=== PATIENT | male | born 1940 | race African-American/Black ===

== ENCOUNTER 2022-06-29 09:40 | Inpatient (IN) | payer OTHER ==
[~2022-06-29] VITALS: Ht 188 cm; Wt 108.9 kg
[2022-06-29 10:41] LABS: BASOPHILS % 1.1 % (0.0-2.0); HEMATOCRIT. 21.2 % (42.0-52.0); LYMPHOCYTES % 39.4 % (20.0-50.0); MEAN CORPUSCULAR HEMOGLOBIN 35.1 pg (28.0-32.0); MEAN CORPUSCULAR VOLUME 112.4 fL (80.0-94.0); MEAN PLATELET VOLUME 11.3 fl (7.4-10.4); MONOCYTES % 8.1 % (2.0-8.0); NEUTROPHILS % 48.4 % (40.0-76.0); PLATELET 187 x1000/uL (130-400); RED BLOOD CELL COUNT 1.88 mill/uL (4.7-6.1); RED CELL DISTRIBUTION WIDTH 29.5 % (11.6-14.6)
[2022-06-29 10:46] LABS: CHLORIDE 108 mEq/L (98-107)
[2022-06-29 11:01] LABS: HEMOGLOBIN. 6.6 g/dL (14.0-18.0)
[2022-06-29 11:19] LABS: PLATELET ESTIMATE NORMAL
[2022-06-29] MEDS ORDERED: PANTOPRAZOLE SODIUM 40 MG/VIAL IV NR (12:45)
[2022-06-29 14:56] LABS: TOTAL IRON BINDING CAPACITY 405 ug/dL (250-450)
[2022-06-29 15:07] LABS: VITAMIN B12 SERUM 1054 pg/mL (211-911)
[2022-06-29 16:08] LABS: CLARITY URINE CLEAR (CLEAR); COLOR URINE YELLOW (YELLOW); KETONES URINE NEGATIVE (NEGATIVE); LEUKOCYTE ESTERASE URINE NEGATIVE (NEGATIVE); NITRITE URINE NEGATIVE (NEGATIVE); OCCULT BLOOD URINE NEGATIVE (NEGATIVE); PROTEIN URINE NEGATIVE (NEGATIVE); SPECIFIC GRAVITY URINE 1.014 (1.005-1.030)
[2022-06-29] MEDS ORDERED: ACETAMINOPHEN 325MG TABLET PO PRN ×2 (16:30)
[2022-06-29] MEDS ORDERED: ONDANSETRON HCL 4MG/2ML INJ IV PRN (16:30)
[2022-06-29] MEDS ORDERED: CLONIDINE 0.1MG TABLET PO PRN (16:30)
[2022-06-29] MEDS ORDERED: DIPHENHYDRAMINE 50MG/ML VIAL IV PRN (16:30)
[2022-06-29 16:52] VITALS: BP 164/63
[2022-06-29 17:01] LABS: FOLIC ACID (FOLATE) SERUM > 20.00 ng/mL (>5.38)
[2022-06-29 20:00] VITALS: BP 155/49
[2022-06-29 20:35] LABS: HEMATOCRIT 24.6 % (42.0-52.0); HEMOGLOBIN 7.7 g/dL (14.0-18.0)
[2022-06-29 21:14] VITALS: BP 129/42
[2022-06-29 21:33] VITALS: BP 144/58
[2022-06-29] MEDS: SOTALOL HCL 80MG TABLET PO SCH (22:08)
[2022-06-29 22:33] VITALS: BP 126/60
[2022-06-29 23:33] VITALS: BP 132/58
[2022-06-30] VITALS (7 sets, daily range): BP systolic 121–141; BP diastolic 53–65
[2022-06-30 05:32] LABS: CHLORIDE 111 mEq/L (98-107)
[2022-06-30 05:33] LABS: BASOPHILS % 0.5 % (0.0-2.0); EOSINOPHILS % 3.7 % (0.0-5.0); HEMATOCRIT. 24.6 % (42.0-52.0); HEMOGLOBIN. 8.1 g/dL (14.0-18.0); LYMPHOCYTES % 36.5 % (20.0-50.0); MEAN CORPUSCULAR HEMOGLOBIN 34.2 pg (28.0-32.0); MEAN CORPUSCULAR VOLUME 103.9 fL (80.0-94.0); MEAN PLATELET VOLUME 10.8 fl (7.4-10.4); MONOCYTES % 10.3 % (2.0-8.0); PLATELET 147 x1000/uL (130-400); RED BLOOD CELL COUNT 2.37 mill/uL (4.7-6.1); RED CELL DISTRIBUTION WIDTH 29.4 % (11.6-14.6)
[2022-06-30] MEDS: SOTALOL HCL 80MG TABLET PO SCH ×2 (08:08→21:40)
[2022-06-30] MEDS: PANTOPRAZOLE SODIUM 40 MG/VIAL IV SCH (08:08)
[2022-06-30] MEDS: LOSARTAN POTASSIUM 50 MG TABLET PO SCH (08:08)
[2022-06-30] MEDS ORDERED: BRIM5DRO6 EACHEYE (11:42)
[2022-06-30] MEDS ORDERED: BRIN15DR4 (11:42)
[2022-06-30] MEDS ORDERED: LATA2.5D14 RIGHTEYE (11:42)
[2022-06-30 15:43] LABS: HEMATOCRIT 25.3 % (42.0-52.0); HEMOGLOBIN 7.9 g/dL (14.0-18.0)
[2022-06-30] MEDS: BRIMONIDINE 0.2% OPHTH DROPS 5ML BOTHEYE SCH (16:19)
[2022-06-30] MEDS: DORZOLAMIDE 2% OPHTH 10 ML BOTTLE BOTHEYE SCH (16:19)
[2022-06-30 19:40] LABS: HEMATOCRIT 26.7 % (42.0-52.0); HEMOGLOBIN 8.6 g/dL (14.0-18.0)
[2022-06-30] MEDS: LATANOPROST 0.005% OPHTH DROPS 2.5ML RIGHTEYE SCH (21:41)
[2022-07-01] VITALS: BP 132/55
[2022-07-01 04:00] VITALS: BP 125/48
[2022-07-01 07:54] LABS: CHLORIDE 110 mEq/L (98-107)
[2022-07-01 07:59] LABS: BASOPHILS % 0.7 % (0.0-2.0); EOSINOPHILS % 4.1 % (0.0-5.0); HEMATOCRIT. 26.5 % (42.0-52.0); HEMOGLOBIN. 8.6 g/dL (14.0-18.0); LYMPHOCYTES % 29.5 % (20.0-50.0); MEAN CORPUSCULAR HEMOGLOBIN 33.9 pg (28.0-32.0); MEAN CORPUSCULAR VOLUME 105.1 fL (80.0-94.0); MEAN PLATELET VOLUME 10.8 fl (7.4-10.4); MONOCYTES % 6.8 % (2.0-8.0); NEUTROPHILS % 58.9 % (40.0-76.0); PLATELET 151 x1000/uL (130-400); RED BLOOD CELL COUNT 2.52 mill/uL (4.7-6.1); RED CELL DISTRIBUTION WIDTH 27.5 % (11.6-14.6)
[2022-07-01 08:00] VITALS: BP 130/60
[2022-07-01] MEDS: SOTALOL HCL 80MG TABLET PO SCH ×2 (08:04→20:52)
[2022-07-01] MEDS: LOSARTAN POTASSIUM 50 MG TABLET PO SCH (08:04)
[2022-07-01] MEDS: BRIMONIDINE 0.2% OPHTH DROPS 5ML BOTHEYE SCH ×2 (08:05→16:30)
[2022-07-01] MEDS: DORZOLAMIDE 2% OPHTH 10 ML BOTTLE BOTHEYE SCH ×2 (08:05→16:29)
[2022-07-01] MEDS: PANTOPRAZOLE SODIUM 40 MG/VIAL IV SCH (08:05)
[2022-07-01 12:00] VITALS: BP 103/41
[2022-07-01 16:00] VITALS: BP 137/53
[2022-07-01] MEDS ORDERED: BISACODYL 5MG TABLET PO NR ×2 (16:30→20:30)
[2022-07-01] MEDS ORDERED: METOCLOPRAMIDE HCL 10MG/2ML VIAL IV NR ×2 (16:30→20:30)
[2022-07-01] MEDS ORDERED: SORBITOL 70% SOLN 30ML PO NR ×2 (17:00→21:00)
[2022-07-01 20:34] VITALS: BP 148/46
[2022-07-01] MEDS: LATANOPROST 0.005% OPHTH DROPS 2.5ML RIGHTEYE SCH (20:55)
[2022-07-02 00:41] VITALS: BP_SYST 117; BP_SYST 119; BP_DIAS 36; BP_DIAS 68
[2022-07-02 03:05] LABS: BASOPHILS % 0.9 % (0.0-2.0); EOSINOPHILS % 2.4 % (0.0-5.0); HEMATOCRIT. 33.1 % (42.0-52.0); HEMOGLOBIN. 10.5 g/dL (14.0-18.0); LYMPHOCYTES % 26.2 % (20.0-50.0); MEAN CORPUSCULAR HEMOGLOBIN 33.4 pg (28.0-32.0); MEAN CORPUSCULAR VOLUME 105.2 fL (80.0-94.0); MEAN PLATELET VOLUME 10.6 fl (7.4-10.4); MONOCYTES % 7.6 % (2.0-8.0); NEUTROPHILS % 62.9 % (40.0-76.0); PLATELET 171 x1000/uL (130-400); RED BLOOD CELL COUNT 3.14 mill/uL (4.7-6.1)
[2022-07-02 03:12] LABS: CHLORIDE 111 mEq/L (98-107)
[2022-07-02 03:15] LABS: PROTHROMBIN TIME 10.6 sec (9.6-11.0)
[2022-07-02 04:00] VITALS: BP 152/44
[2022-07-02 08:00] VITALS: BP 125/56
[2022-07-02] MEDS: PANTOPRAZOLE SODIUM 40 MG/VIAL IV SCH (09:08)
[2022-07-02] MEDS: LOSARTAN POTASSIUM 50 MG TABLET PO SCH (09:08)
[2022-07-02] MEDS: SOTALOL HCL 80MG TABLET PO SCH (09:09)
[2022-07-02] MEDS: BRIMONIDINE 0.2% OPHTH DROPS 5ML BOTHEYE SCH ×2 (09:10→17:00)
[2022-07-02] MEDS: DORZOLAMIDE 2% OPHTH 10 ML BOTTLE BOTHEYE SCH ×2 (09:10→17:00)
[2022-07-02] MEDS ORDERED: LIDOCAINE HCL 1% 10 MG/ML 10ML VIAL ONE (10:22)
[2022-07-02 12:00] VITALS: BP 118/58
[2022-07-02] MEDS ORDERED: MIDAZOLAM HCL 2 MG/2 ML VIAL ONE (16:01)
[2022-07-02] MEDS ORDERED: PROPOFOL 200MG/20ML VIAL IV ONE (16:01)
[2022-07-02] MEDS ORDERED: FENTANYL CITRATE/PF 50MCG/ML 2ML VIAL ONE (16:01)
[2022-07-02] MEDS ORDERED: PHENYLEPHRINE HCL 10 MG/ML 1ML (IV VIAL) IV ONE (16:47)
[2022-07-02] MEDS ORDERED: EPHEDRINE SULFATE 50MG/ML VIAL ONE (16:56)
[2022-07-02 20:00] VITALS: BP 159/61
[2022-07-02] MEDS: LATANOPROST 0.005% OPHTH DROPS 2.5ML RIGHTEYE SCH (20:53)
[2022-07-03] VITALS (14 sets, daily range): BP systolic 120–155; BP diastolic 56–84
[2022-07-03 07:12] LABS: BASOPHILS % 0.6 % (0.0-2.0); EOSINOPHILS % 4.7 % (0.0-5.0); HEMATOCRIT. 27.7 % (42.0-52.0); LYMPHOCYTES % 20.2 % (20.0-50.0); MEAN CORPUSCULAR HEMOGLOBIN 33.7 pg (28.0-32.0); MEAN CORPUSCULAR VOLUME 103.1 fL (80.0-94.0); MEAN PLATELET VOLUME 11.1 fl (7.4-10.4); MONOCYTES % 6.9 % (2.0-8.0); NEUTROPHILS % 67.6 % (40.0-76.0); PLATELET 150 x1000/uL (130-400); RED BLOOD CELL COUNT 2.68 mill/uL (4.7-6.1)
[2022-07-03] MEDS ORDERED: HYDROCODONE/ACETAMINOPHEN 5/325MG TABLET PO PRN (10:00)
[2022-07-03] MEDS ORDERED: DIATR MEGLU/DIATRIZOATE SOLN 30ML PO SCH (10:15)
[2022-07-03] MEDS ORDERED: NALOXONE HCL 0.4MG/ML VIAL IV PRN (10:15)
[2022-07-03] MEDS: PANTOPRAZOLE SODIUM 40 MG/VIAL IV SCH (12:43)
[2022-07-03] MEDS: LOSARTAN POTASSIUM 50 MG TABLET PO SCH (12:43)
[2022-07-03] MEDS ORDERED: SOTALOL HCL 80MG TABLET PO NR (13:00)
[2022-07-03 15:43] LABS: CHLORIDE 111 mEq/L (98-107)
[2022-07-03] MEDS: BRIMONIDINE 0.2% OPHTH DROPS 5ML BOTHEYE SCH (20:27)
[2022-07-03] MEDS: SOTALOL HCL 80MG TABLET PO SCH (20:30)
[2022-07-03] MEDS: LATANOPROST 0.005% OPHTH DROPS 2.5ML RIGHTEYE SCH (20:32)
[2022-07-03] MEDS: DORZOLAMIDE 2% OPHTH 10 ML BOTTLE BOTHEYE SCH (20:36)
[2022-07-04] VITALS (8 sets, daily range): BP systolic 121–161; BP diastolic 52–82
[2022-07-04] MEDS: PANTOPRAZOLE SODIUM 40 MG/VIAL IV SCH (07:58)
[2022-07-04] MEDS: LOSARTAN POTASSIUM 50 MG TABLET PO SCH (07:58)
[2022-07-04] MEDS: SOTALOL HCL 80MG TABLET PO SCH ×2 (08:00→21:26)
[2022-07-04 09:14] LABS: BASOPHILS % 0.9 % (0.0-2.0); EOSINOPHILS % 5.4 % (0.0-5.0); HEMATOCRIT. 24.5 % (42.0-52.0); HEMOGLOBIN. 8.1 g/dL (14.0-18.0); LYMPHOCYTES % 24.3 % (20.0-50.0); MEAN CORPUSCULAR HEMOGLOBIN 33.9 pg (28.0-32.0); MEAN CORPUSCULAR VOLUME 102.2 fL (80.0-94.0); MEAN PLATELET VOLUME 11.2 fl (7.4-10.4); MONOCYTES % 7.8 % (2.0-8.0); NEUTROPHILS % 61.6 % (40.0-76.0); PLATELET 128 x1000/uL (130-400)
[2022-07-04 09:51] LABS: CHLORIDE 112 mEq/L (98-107)
[2022-07-04] MEDS ORDERED: DIATR MEGLU/DIATRIZOATE SOLN 30ML PO SCH (10:30)
[2022-07-04] MEDS: DORZOLAMIDE 2% OPHTH 10 ML BOTTLE BOTHEYE SCH (12:49)
[2022-07-04] MEDS: BRIMONIDINE 0.2% OPHTH DROPS 5ML BOTHEYE SCH (12:49)
[2022-07-04] MEDS: LATANOPROST 0.005% OPHTH DROPS 2.5ML RIGHTEYE SCH (21:00)
[2022-07-05] VITALS: BP 133/58
[2022-07-05 04:00] VITALS: BP 136/64
[2022-07-05 06:50] LABS: HEMATOCRIT. 24.9 % (42.0-52.0); LYMPHOCYTES % 30.8 % (20.0-50.0); MEAN PLATELET VOLUME 11.2 fl (7.4-10.4); MONOCYTES % 10.3 % (2.0-8.0); NEUTROPHILS % 52.9 % (40.0-76.0); PLATELET 123 x1000/uL (130-400); RED BLOOD CELL COUNT 2.41 mill/uL (4.7-6.1); RED CELL DISTRIBUTION WIDTH 24.3 % (11.6-14.6)
[2022-07-05 06:58] LABS: CHLORIDE 112 mEq/L (98-107)
[2022-07-05 07:35] VITALS: BP 124/73
[2022-07-05] MEDS: SOTALOL HCL 80MG TABLET PO SCH (07:44)
[2022-07-05] MEDS: BRIMONIDINE 0.2% OPHTH DROPS 5ML BOTHEYE SCH (08:22)
[2022-07-05] MEDS: DORZOLAMIDE 2% OPHTH 10 ML BOTTLE BOTHEYE SCH (08:22)
[2022-07-05] MEDS: LOSARTAN POTASSIUM 50 MG TABLET PO SCH (08:23)
[2022-07-05 08:26] VITALS: BP 124/69
[2022-07-05] MEDS ORDERED: PANTOPRAZOLE 40MG DR TABLET PO SCH (09:00)
== END 2022-07-05 11:40 | disposition home or self-care (01) | DRG 242 ==
LOC: ER 09:40 → 7WST 12:39 → ENRESERV 15:28 → 7WST 19:36 → 3WST 07-03 10:22
PROVIDERS: ADMIT Internal Medicine; ATTEND Internal Medicine
PROC: 30233N1 Transfusion of Nonautologous Red Blood Cells into Peripheral Vein, Percutaneous Approach (ICD-10-PCS; 2022-06-29)
PROC: 02HV33Z Insertion of Infusion Device into Superior Vena Cava, Percutaneous Approach (ICD-10-PCS; 2022-07-02)
PROC: B5181ZA Fluoroscopy of Superior Vena Cava using Low Osmolar Contrast, Guidance (ICD-10-PCS; 2022-07-02)
PROC: B548ZZA Ultrasonography of Superior Vena Cava, Guidance (ICD-10-PCS; 2022-07-02)
PROC: 0DB78ZX Excision of Stomach, Pylorus, Via Natural or Artificial Opening Endoscopic, Diagnostic (ICD-10-PCS; 2022-07-02)
PROC: 0DBK8ZZ Excision of Ascending Colon, Via Natural or Artificial Opening Endoscopic (ICD-10-PCS; 2022-07-02)
PROC: 0JH606Z Insertion of Pacemaker, Dual Chamber into Chest Subcutaneous Tissue and Fascia, Open Approach (ICD-10-PCS; principal; 2022-07-03)
PROC: 02H63JZ Insertion of Pacemaker Lead into Right Atrium, Percutaneous Approach (ICD-10-PCS; 2022-07-03)
PROC: 02HK3JZ Insertion of Pacemaker Lead into Right Ventricle, Percutaneous Approach (ICD-10-PCS; 2022-07-03)
DX: I49.5 Sick sinus syndrome (principal); K57.31 Diverticulosis of large intestine without perforation or abscess with bleeding; I82.611 Acute embolism and thrombosis of superficial veins of right upper extremity; N17.9 Acute kidney failure, unspecified; D50.9 Iron deficiency anemia, unspecified; I11.9 Hypertensive heart disease without heart failure; K80.20 Calculus of gallbladder without cholecystitis without obstruction; I48.0 Paroxysmal atrial fibrillation; G47.33 Obstructive sleep apnea (adult) (pediatric); E66.9 Obesity, unspecified; M70.31 Other bursitis of elbow, right elbow; K76.0 Fatty (change of) liver, not elsewhere classified; K64.8 Other hemorrhoids; K63.5 Polyp of colon; K29.70 Gastritis, unspecified, without bleeding; H40.9 Unspecified glaucoma; I08.3 Combined rheumatic disorders of mitral, aortic and tricuspid valves; E80.6 Other disorders of bilirubin metabolism; R74.01 Elevation of levels of liver transaminase levels; Z20.822 Contact with and (suspected) exposure to COVID-19; Z79.01 Long term (current) use of anticoagulants; Z79.899 Other long term (current) drug therapy
CPT/HCPCS: 33208; 36415; 36573; 71045; 75820; 76700; 80048; 80053; 81003; 82270; 82607; 82746; 83540; 83550; 83735; 83880; 84443; 84484; 85014; 85018; 85025; 85044; 86850; 86900; 86920; 87426; 88305; 93005; 93306; 93971; 99291; C1725; C1785; C1893; C1898; C9113; J2250; J2370; J2704; J2765; J3010; J3490; P9016; Q9963

== ENCOUNTER 2023-02-27 05:53 | Inpatient (IN) | payer OTHER ==
[~2023-02-27] VITALS: Ht 188 cm; Wt 104.3 kg
[~2023-02-27 05:53] MED LIST: BRIM5DRO6 EACHEYE; BRIN15DR4; LATA2.5D14 RIGHTEYE
[2023-02-27 07:20] LABS: BASOPHILS % 1.2 % (0.0-2.0); EOSINOPHILS % 3.1 % (0.0-5.0); HEMATOCRIT. 28.2 % (42.0-52.0); HEMOGLOBIN. 9.3 g/dL (14.0-18.0); LYMPHOCYTES % 41.8 % (20.0-50.0); MEAN CORPUSCULAR HEMOGLOBIN 29.9 pg (28.0-32.0); MEAN CORPUSCULAR HGB CONC 33.1 g/dL (31.0-37.0); MEAN CORPUSCULAR VOLUME 90.4 fL (80.0-94.0); MEAN PLATELET VOLUME 10.4 fl (7.4-10.4); MONOCYTES % 9.7 % (2.0-8.0); NEUTROPHILS % 44.2 % (40.0-76.0); PLATELET 183 x1000/uL (130-400); RED BLOOD CELL COUNT 3.12 mill/uL (4.7-6.1); RED CELL DISTRIBUTION WIDTH 28.3 % (11.6-14.6); WHITE BLOOD COUNT 5.7 x1000/uL (4.5-11.0)
[2023-02-27 07:37] LABS: DIFFERENTIAL COMMENT 1
[2023-02-27 07:38] LABS: ADD RBC MORPHOLOGY YES
[2023-02-27 08:00] LABS: INDEX HEMOLYSI 1 (1-3); INDEX ICTERIC 1 (1-4); INDEX LIPEMIC 1 (1-3)
[2023-02-27 08:02] LABS: CHLORIDE 108 mEq/L (98-107); POTASSIUM 4.2 mEq/L (3.5-5.1); SODIUM 139 mEq/L (136-145)
[2023-02-27 08:13] LABS: ALANINE AMINOTRANSFERASE 23 IU/L (13-61); ALBUMIN 3.9 g/dL (3.4-5.0); ASPARTATE AMINOTRANSFERASE 17 IU/L (15-37); BILIRUBIN TOTAL 1.1 mg/dL (0.1-1.0); CALCIUM 8.7 mg/dL (8.5-10.1); CARBON DIOXIDE 26 mEq/L (21-32); CREATININE 1.4 mg/dL (0.6-1.3); GLUCOSE 108 mg/dL (70-105); NT PRO B-TYPE NATRIURETIC PEP 359 pg/mL (5-125); TROPONIN I HIGH SENSITIVITY 15 ng/L (<78); UREA NITROGEN BLOOD 24 mg/dL (7-21)
[2023-02-27 09:39] LABS: PLATELET ESTIMATE NORMAL
[2023-02-27 09:40] LABS: ANISOCYTOSIS 2+; HYPOCHROMASIA 1+
[2023-02-27] MEDS ORDERED: FUROSEMIDE 40MG TABLET PO NR (12:00)
[2023-02-27] MEDS ORDERED: DEXT 5%/0.45% NACL 500ML 500 ML IV SCH (12:00)
[2023-02-27] MEDS ORDERED: DEXT 5%/0.45% NACL 1000ML 1,000 ML IV SCH (12:00)
[2023-02-27] MEDS ORDERED: ONDANSETRON HCL 4MG/2ML INJ IV PRN (12:15)
[2023-02-27] MEDS ORDERED: IPRATROPIUM/ALBUTEROL 0.5-3(2.5)MG/3ML NEB HHN PRN (12:15)
[2023-02-27] MEDS ORDERED: DOCUSATE SODIUM 100MG CAPSULE PO PRN (12:15)
[2023-02-27] MEDS ORDERED: ACETAMINOPHEN 325MG TABLET PO PRN ×2 (12:15)
[2023-02-27] MEDS: SODIUM CHLORIDE 0.45% 1,000 ML IV SCH (12:30)
[2023-02-27] MEDS: SOTALOL HCL 80MG TABLET PO SCH ×2 (12:54→21:00)
[2023-02-27] MEDS ORDERED: SOTA80TA PO (14:54)
[2023-02-27] MEDS ORDERED: AMLO5TAB88 PO (14:56)
[2023-02-27] MEDS ORDERED: LISI20TA31 PO (14:58)
[2023-02-27 15:13] VITALS: BP 156/74; PULSE 60; RESP 14; TEMP 97.4
[2023-02-27 16:00] VITALS: PULSE 86; RESP 18; TEMP 97.5
[2023-02-27 20:00] VITALS: BP 146/69; PULSE 60; RESP 16; TEMP 98.6
[2023-02-28] VITALS: PULSE 60; RESP 21; TEMP 98.9
[2023-02-28] MEDS: SODIUM CHLORIDE 0.45% 1,000 ML IV SCH (01:50)
[2023-02-28 04:00] VITALS: BP 126/55; PULSE 60; RESP 23; TEMP 98.6
[2023-02-28 08:00] VITALS: BP 133/88; PULSE 60; RESP 27; TEMP 98.7
[2023-02-28 08:02] LABS: BASOPHILS % 1.2 % (0.0-2.0); HEMATOCRIT. 27.4 % (42.0-52.0); HEMOGLOBIN. 9.2 g/dL (14.0-18.0); LYMPHOCYTES % 39.9 % (20.0-50.0); MEAN CORPUSCULAR HEMOGLOBIN 30.2 pg (28.0-32.0); MEAN CORPUSCULAR HGB CONC 33.5 g/dL (31.0-37.0); MEAN CORPUSCULAR VOLUME 90.1 fL (80.0-94.0); MEAN PLATELET VOLUME 11.1 fl (7.4-10.4); MONOCYTES % 11.1 % (2.0-8.0); NEUTROPHILS % 43.8 % (40.0-76.0); PLATELET 181 x1000/uL (130-400); RED BLOOD CELL COUNT 3.04 mill/uL (4.7-6.1); RED CELL DISTRIBUTION WIDTH 28.3 % (11.6-14.6); WHITE BLOOD COUNT 5.1 x1000/uL (4.5-11.0)
[2023-02-28 08:16] LABS: DIFFERENTIAL COMMENT 1
[2023-02-28 08:31] LABS: CALCIUM 8.4 mg/dL (8.5-10.1); CHLORIDE 109 mEq/L (98-107); INDEX HEMOLYSI 1 (1-3); INDEX ICTERIC 1 (1-4); INDEX LIPEMIC 1 (1-3); SODIUM 138 mEq/L (136-145)
[2023-02-28 08:45] LABS: CARBON DIOXIDE 28 mEq/L (21-32); CREATININE 1.1 mg/dL (0.6-1.3); GLUCOSE 103 mg/dL (70-105); TROPONIN I HIGH SENSITIVITY 16 ng/L (<78); UREA NITROGEN BLOOD 21 mg/dL (7-21)
[2023-02-28] MEDS: SOTALOL HCL 80MG TABLET PO SCH (09:00)
[2023-02-28] MEDS ORDERED: FUROSEMIDE 40MG TABLET PO SCH (09:00)
[2023-02-28] MEDS ORDERED: LISINOPRIL 10MG TABLET PO SCH (09:00)
[2023-02-28 09:03] VITALS: BP 133/70; PULSE 60; TEMP 97; O2SAT 99
== END 2023-02-28 09:54 | disposition home or self-care (01) | DRG 313 ==
LOC: ER 05:53 → 5EST 09:50 → EDBEDREQTM 09:54 → EDBEDREQ 09:54
PROVIDERS: ADMIT Internal Medicine; ATTEND Internal Medicine
DX: R07.89 Other chest pain (principal); N17.9 Acute kidney failure, unspecified; I10 Essential (primary) hypertension; I25.10 Atherosclerotic heart disease of native coronary artery without angina pectoris; H40.9 Unspecified glaucoma; E66.9 Obesity, unspecified; D64.9 Anemia, unspecified; K57.90 Diverticulosis of intestine, part unspecified, without perforation or abscess without bleeding; E86.0 Dehydration; G47.33 Obstructive sleep apnea (adult) (pediatric); I35.0 Nonrheumatic aortic (valve) stenosis; Z79.899 Other long term (current) drug therapy; Z86.61 Personal history of infections of the central nervous system; Z95.810 Presence of automatic (implantable) cardiac defibrillator; Z68.29 Body mass index [BMI] 29.0-29.9, adult
CPT/HCPCS: 36415; 71045; 80048; 80053; 83735; 83880; 84443; 84484; 85025; 93005; 93306; 99285